=== PATIENT | male | born 1930 | race Caucasian/White ===

== ENCOUNTER 2017-10-08 16:00 | Inpatient (IN) | payer OTHER ==
[~2017-10-08] VITALS: Ht 180.3 cm; Wt 90.7 kg
--- NOTE | 2017-10-08 16:27 | ED GI/GU/ABDOMINAL COMPLAINT ---
History of Present Illness General Chief Complaint: Abdominal Pain/Flank Pain Stated Complaint: ?DIVERTICULITIS Source: patient, family Exam Limitations: no limitations Vital Signs & Intake/Output Vital Signs & Intake/Output Vital Signs Date Time Temp Pulse Resp B/P B/P Pulse O2 O2 Flow FiO2 Mean Ox Delivery Rate 10/10 0631 98.2 86 20 150/66 96 Room Air / 2203 98.5 80 20 164/72 98 Room Air 10/09 1429 98.2 82 20 148/64 93 Room Air 10/09 0837 86 150/64 06/05 0718 98.4 86 20 150/64 95 Room Air ED Intake and Output 10/10 0000 10/09 1200 Intake Total 1994 975 Output Total 2850 500 Balance -855 475 Intake, IV 1994 975 Intake, Oral 0 Number 0 Bowel Movements Output, Urine 2850 500 Allergies Coded Allergies: NO KNOWN ALLERGIES (10/08/17) Reconcile Medications Amlodipine Besylate 5 MG TABLET 1 TAB PO DAILY htn (Reported) Enalapril Maleate (Unknown Strength) TABLET (Unknown Dose) htn (Reported) Warfarin Sodium (Coumadin) 5 MG TABLET 1 TAB PO DAILY hx dvt (Reported) Triage Note: PT STATES HE IS HAVING "INTESTINAL PAIN AND I HAVE A TEMP.".. PT STATES HE HAS HX OF DIVERTICULITS PT DID NOT NOTE ANY BLOOD IN STOOL AND STATES HE HAS NOT HAD A BM TODAY. Triage Nurses Notes Reviewed? yes Onset: Abrupt Duration: hour(s):, constant Quality/Severity: moderate, sharpness, severe Location: lower abdomen Radiation: no radiation Activities at Onset: none Prior Abdominal Problems: none No Modifying Factors: none HPI: 87-year-old male comes into the emergency room for further evaluation of lower abdominal pain sudden onset this morning. Pain is sharp cramping nonradiating. Associated fever. History of diverticulitis. He has a history of a right nephrectomy secondary to renal cell carcinoma. Denies any vomiting. Denies any blood in his stool. He has not been able to have a bowel movement today yet. Pain was very intense initially but has decreased but is still present. (Shad Ahuja) Past History Travel History Traveled to [place] past 21 day No Medical History Any Pertinent Medical History? see below for history Cardiovascular: hypertension Gastrointestinal: diverticulitis Renal: GOUT Blood Disorders: DVT Cancer(s): RENAL AND PROSTATE Surgical History Surgical History: right nephrectomy Psychosocial History What is your primary language Frisian Tobacco Use: Quit >30 days ago ETOH Use: occasional use Illicit Drug Use: denies illicit drug use Family History Hx Contributory? No (Shad Ahuja) Review of Systems Review of Systems Constitutional: Reports: no symptoms. EENTM: Reports: no symptoms. Respiratory: Reports: no symptoms. Cardiovascular: Reports: no symptoms. GI: Reports: see HPI. Genitourinary: Reports: no symptoms. Musculoskeletal: Reports: no symptoms. Skin: Reports: no symptoms. Neurological/Psychological: Reports: no symptoms. Hematologic/Endocrine: Reports: no symptoms. Immunologic/Allergic: Reports: no symptoms. All Other Systems: Reviewed and Negative (Shad Ahuja) Physical Exam Physical Exam General Appearance: well developed/nourished, mild distress Head: atraumatic Eyes: Bilateral: normal appearance. Ears, Nose, Throat, Mouth: hearing grossly normal, moist mucous membrane Neck: normal inspection Respiratory: no respiratory distress Gastrointestinal: soft, guarding, tenderness (right lower abdomen) Back: normal inspection Extremities: normal range of motion Neurologic/Psych: awake, alert, oriented x 3 Core Measures ACS in differential dx? No Sepsis Present: No Sepsis Focused Exam Completed? No (Shad Ahuja) Progress Differential Diagnosis: appendicitis, bowel obstruction, diverticulitis, ischemic bowel, peptic ulcer, perforated viscous, SBO, ureterolithiasis, UTI/ pyelo Plan of Care: Orders Procedure Date/time Status PROTHROMBIN TIME 10/10 599 Active CBC WITHOUT DIFFERENTIAL 10/10 599 Active BASIC ELECTROLYTES PLUS BUN&CR 10/10 599 Active Current Medications Sig/Olga Start time Last Medication Dose Stop Time Status Admin Ceftriaxone Sodium 1,000 MG Q24H 10/09 1945 AC 10/09 (Rocephin) 1929 Metronidazole 500 MG Q8H 10/09 0345 AC 10/10 (Flagyl) 0322 N/A 1 UNIT (No Carrier) Dextrose/Sodium 1,000 ML .Q8H 10/09 1999 AC 10/10 Chloride 0157 (D5-Normal Saline) Morphine Sulfate 2 MG Q2P PRN 10/09 1999 AC (MORPHINE SULFATE) Morphine Sulfate 4 MG Q2P PRN 10/09 1999 AC (MORPHINE SULFATE) Ondansetron HCl 4 MG Q6P PRN 10/09 1999 AC (Zofran) Amlodipine Besylate 5 MG DAILY 10/08 1957 AC 10/09 (Norvasc) 0837 Laboratory Tests 10/09/17 0720: Anion Gap 8, Estimated GFR 48 L, BUN/Creatinine Ratio 15.0, PT 41.9 H, INR 3.79 H, CBC w Diff NO MAN DIFF REQ, RBC 2.93 L, MCV 94.1 H, MCH 31.3 H, MCHC 33.3, RDW 14.6 H, MPV 7.5, Gran % 75.6 H, Lymphocytes % 13.7 L, Monocytes % 8.0, Eosinophils % 2.4, Basophils % 0.3, Absolute Granulocytes 5.3, Absolute Lymphocytes 1.0 L, Absolute Monocytes 0.6, Absolute Eosinophils 0.2, Absolute Basophils 0 Diagnostic Imaging: Viewed by Me: CT Scan. Discussed w/RAD: CT Scan. Radiology Impression: PATIENT: ROMAIN ZAIDI PRESENT AGE: 87 PATIENT ACCOUNT NO: [id number] : 31 LOCATION: [facility] ORDERING PHYSICIAN: Shad SELF SERVICE DATE: 10/08/17 EXAM TYPE: CAT - CT ABD & PELVIS W/O IV CONTRAS EXAMINATION: CT ABDOMEN AND PELVIS WITHOUT CONTRAST CLINICAL INFORMATION: Sudden onset lower abdominal pain. History of diverticulitis. COMPARISON: CT scan abdomen pelvis 01/18/2013 TECHNIQUE: Multidetector volumetric imaging was performed from the superior aspect of the liver through the pubic symphysis. Sagittal and coronal reformatted images were obtained on the technologist's workstation. DLP: 755.81 mGy-cm FINDINGS: LUNG BASES: The visualized lung bases are unremarkable. LIVER, GALLBLADDER, AND BILIARY TREE: There are numerous hepatic cysts. No suspicious liver lesion. No intrahepatic bile duct dilatation. Status post cholecystectomy. There is no bile duct dilatation. PANCREAS: There is atrophy of the pancreas. No acute change. No inflammation or mass. No pancreatic duct dilatation. SPLEEN: Unremarkable. ADRENAL GLANDS: Unremarkable. KIDNEYS AND URETERS: The right kidney is surgically absent. There are surgical clips in the right renal fossa. No mass present. There are numerous cysts in the left kidney. These involve both the cortex and parapelvic region. These range in size from the largest cyst measuring 9.3 cm 2 smaller cysts measuring less than a centimeter. There is no hydronephrosis. There is no calculi. There are vascular calcifications at the delonte. BLADDER: There is a right-sided bladder diverticulum measuring 4.7 x 3 x 3 cm. GASTROINTESTINAL TRACT: There is extraluminal gas in the right lower quadrant in a focal area with mesenteric edema. This edema was around both large and small bowel loops. There are innumerable diverticula of the sigmoid colon which lies close to this area but the mesenteric edema appears more related to an adjacent small bowel loop. The bowel perforation edema is related to a diverticulitis and would suspect is involving the large bowel but cannot exclude small bowel involvement. The appendix is normal. ABDOMINAL WALL: No significant hernia is appreciated. LYMPH NODES: Normal. VASCULAR: Unremarkable. PELVIC VISCERA: Unremarkable. OSSEOUS STRUCTURES: Unremarkable. IMPRESSION: Extraluminal gas and mesenteric edema in the right lower quadrant from diverticulitis. This is likely from a loop of large bowel bowel in the right lower quadrant. This critical result was discussed with Dr. Massey on 2017. 5:30 PM and it was ascertained that the content and urgency of the report was understood at the time of direct communication. DICTATED BY: Derrick Mariscal MD DATE/TIME DICTATED:10/08/171710 LARD RENDERER:JACKIE DATE/TIME TRANSCRIBED:10/08/171710 CONFIDENTIAL, DO NOT COPY WITHOUT APPROPRIATE AUTHORIZATION. <Electronically signed in Other Vendor System> SIGNED BY: Derrick Mariscal MD 10/08/17 5663 Initial ED EKG: normal sinus rhythm, rate (117) (Shad Ahuja) Departure Departure Disposition: STILL A PATIENT Condition: Stable Clinical Impression Primary Impression: Perforated diverticulum Referrals: Michele KRISHNAN,Shawn Gonsalez (PCP/Family) Departure Forms: Customer Survey General Discharge Information (Shad Ahuja) PA/HOPPER FILLER Co-Sign Statement Statement: ED Attending supervision documentation- [x] I saw and evaluated the patient. I have also reviewed all the pertinent lab results and diagnostic results. I agree with the findings and the plan of care as documented in the PA's/HOPPER FILLER's documentation. [] I have reviewed the ED Record and agree with the PA's/HOPPER FILLER's documentation. [] Additions or exceptions (if any) to the PAs/HOPPER FILLER's note and plan are summarized below: [] (Eddy Anderson DO) Admission Note Spoke With: Chai Romero DO Documentation of Exam: Documentation of any treatments & extenuating circumstances including Concerns Regarding Discharge (functional status, medication knowledge or non-compliance, living conditions, etc.) that warrant an admission rather than observation: [ Admitted to the surgical service, nothing by mouth, IV antibiotics, may require surgical intervention.] (Francisco KRISHNAN,Dov Matos) Critical Care Note Critical Care Note Critical Care Time: 30-74 min (Shad Ahuja) Absolute Monocytes 0.6, Absolute Eosinophils 0, Absolute Basophils 0 (Eddy Anderson DO) Departure Departure Disposition: STILL A PATIENT Condition: Stable Clinical Impression Primary Impression: Perforated diverticulum Referrals: Shawn Bautista MD (PCP/Family) Departure Forms: Customer Survey General Discharge Information (Shad Ahuja) PA/HOPPER FILLER Co-Sign Statement Statement: ED Attending supervision documentation- [x] I saw and evaluated the patient. I have also reviewed all the pertinent lab results and diagnostic results. I agree with the findings and the plan of care as documented in the PA's/HOPPER FILLER's documentation. [] I have reviewed the ED Record and agree with the PA's/HOPPER FILLER's documentation. [] Additions or exceptions (if any) to the PAs/HOPPER FILLER's note and plan are summarized below: [] (Eddy Anderson DO) Admission Note Spoke With: Chai Romero DO Documentation of Exam: Documentation of any treatments & extenuating circumstances including Concerns Regarding Discharge (functional status, medication knowledge or non-compliance, living conditions, etc.) that warrant an admission rather than observation: [ Admitted to the surgical service, nothing by mouth, IV antibiotics, may require surgical intervention.] (Dov Singh MD) Critical Care Note Critical Care Note Critical Care Time: 30-74 min (Shad Ahuja)
[2017-10-08 16:56] LABS: ABSOLUTE BASOPHIL COUNT 0 /CUMM (0.0-0.2); ABSOLUTE EOSINOPHIL COUNT 0 /CUMM (0.0-0.7); ABSOLUTE LYMPH COUNT 0.7 /CUMM (1.2-3.4); ABSOLUTE MONOCYTE COUNT 0.6 /CUMM (0.10-0.60); BASOPHIL % 0.2 % (0.0-2.0); EOSINOPHIL % 0.5 % (0-5); HEMATOCRIT 33.3 % (42-52); MEAN CORPUSCULAR HGB 31.6 PG (27.0-31.0); MEAN CORPUSCULAR HGB CONC 33.3 G/DL (33.0-37.0); MEAN CORPUSCULAR VOLUME 94.9 FL (80.0-94.0); MEAN PLATELET VOLUME 7.5 FL (7.4-10.4); PLATELET COUNT 232 /CUMM (130-400); RBC DISTRIBUTION WIDTH 14.7 % (11.5-14.5); WHITE BLOOD CELL COUNT 9.4 /CUMM (4.8-10.8)
[2017-10-08 17:15] LABS: GRANULOCYTE % 84.8 % (42.2-75.2)
--- NOTE | 2017-10-08 17:39 | CT SCAN REPORT ---
EXAMINATION: CT ABDOMEN AND PELVIS WITHOUT CONTRAST CLINICAL INFORMATION: Sudden onset lower abdominal pain. History of diverticulitis. COMPARISON: CT scan abdomen pelvis 01/18/2013 TECHNIQUE: Multidetector volumetric imaging was performed from the superior aspect of the liver through the pubic symphysis. Sagittal and coronal reformatted images were obtained on the technologist's workstation. DLP: 755.81 mGy-cm FINDINGS: LUNG BASES: The visualized lung bases are unremarkable. LIVER, GALLBLADDER, AND BILIARY TREE: There are numerous hepatic cysts. No suspicious liver lesion. No intrahepatic bile duct dilatation. Status post cholecystectomy. There is no bile duct dilatation. PANCREAS: There is atrophy of the pancreas. No acute change. No inflammation or mass. No pancreatic duct dilatation. SPLEEN: Unremarkable. ADRENAL GLANDS: Unremarkable. KIDNEYS AND URETERS: The right kidney is surgically absent. There are surgical clips in the right renal fossa. No mass present. There are numerous cysts in the left kidney. These involve both the cortex and parapelvic region. These range in size from the largest cyst measuring 9.3 cm 2 smaller cysts measuring less than a centimeter. There is no hydronephrosis. There is no calculi. There are vascular calcifications at the delonte. BLADDER: There is a right-sided bladder diverticulum measuring 4.7 x 3 x 3 cm. GASTROINTESTINAL TRACT: There is extraluminal gas in the right lower quadrant in a focal area with mesenteric edema. This edema was around both large and small bowel loops. There are innumerable diverticula of the sigmoid colon which lies close to this area but the mesenteric edema appears more related to an adjacent small bowel loop. The bowel perforation edema is related to a diverticulitis and would suspect is involving the large bowel but cannot exclude small bowel involvement. The appendix is normal. ABDOMINAL WALL: No significant hernia is appreciated. LYMPH NODES: Normal. VASCULAR: Unremarkable. PELVIC VISCERA: Unremarkable. OSSEOUS STRUCTURES: Unremarkable. IMPRESSION: Extraluminal gas and mesenteric edema in the right lower quadrant from diverticulitis. This is likely from a loop of large bowel bowel in the right lower quadrant. This critical result was discussed with Dr. Massey on 10/08/2017. 5:30 PM and it was ascertained that the content and urgency of the report was understood at the time of direct communication.
--- NOTE | 2017-10-08 19:26 | PN- General Surgery ---
Surgical Brief Attending Note Brief Attending Note: Patient seen and examined, full consult to follow. Abdominal pain started today, h/o diverticulitis treated with PO Abx. Febrile earlier. C-scope 6 years ago and normal as per patient. Currently comfortable with minimal pain. Abd-soft, mild tenderness right lower abdomen, no R/G. Labs ok. CT scan ?diverticulitis perf with localized air/fluid (?small bowel vs large bowel?). NPO/IVF, IV Abx, serial abdominal exams. D/W patient and ED staff.
[2017-10-08 19:46] LABS: PT 34.1 SEC (9.4-12.5); PTT 39 SEC (25-37)
[2017-10-08] MEDS ORDERED: COUMADIN5 M2 PO (19:50)
[2017-10-08] MEDS ORDERED: AMLODIPINE BESYL5 M1 PO (19:50)
[2017-10-08] MEDS ORDERED: ENALAPRIL MALEAT5 M1 PO (19:51)
--- NOTE | 2017-10-08 19:52 | History & Physical Pre-Op ---
Miesha Dotson [birth year]1951: General Information and HPI History of Present Illness: 87yoM presents to ED with acute onset lower abdominal pain this am. Ate regular breakfast, and was feeling in normal state of health until sharp crampy pain across lower abd began ahortly after eating. Pain accompanied with fever to 102 at home. Found with Tmax 101.7 in ED, and was very TTP in lower abd per ED PA. At time of this interview, pt feeling much better. Pain in RLQ, though much improved. No n/v, no cp/sob, no subjective fever. Does have known history of diverticulitis x3 episodes, all treated with outpt abx. Last cscope 6 yrs ago, "normal". Surg Hx: R nephrectomy (RCC), prostatectomy (ca). 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 Allergies/Medications Allergies: Coded Allergies: NO KNOWN ALLERGIES (10/08/17) Home Med list Amlodipine Besylate 5 MG TABLET 1 TAB PO DAILY htn (Reported) Enalapril Maleate (Unknown Strength) TABLET (Unknown Dose) htn (Reported) Warfarin Sodium (Coumadin) 5 MG TABLET 1 TAB PO DAILY hx dvt (Reported) Past History Medical History Cardiovascular: hypertension, hyperlipidemia Gastrointestinal: diverticulitis Renal: GOUT Blood Disorders: NONE (2003 and 2007, RLE), DVT Cancer(s): RENAL AND PROSTATE Surgical History Pertinent Surgical History: prostatectomy, right nephrectomy Past Family/Social History Psychosocial History Where Do You Live? Home Who Do You Live With? spouse Smoking Status: Former Smoker (quit 40yr ago) ETOH Use: occasional use Illicit Drug Use: denies illicit drug use Exam & Diagnostic Data Last 24 Hrs of Vital Signs/I&O Vital Signs Date Time Temp Pulse Resp B/P B/P Pulse O2 O2 Flow FiO2 Mean Ox Delivery Rate 10/08 1946 99.7 90 20 134/62 96 Room Air 10/08 1728 101.2 10/08 1701 101.7 10/08 1611 101.7 132 18 166/75 95 Room Air Physical Exam: gen- nad card- s1s2 rrr pulm- ctab abd- mildly ttp rlq, no r/g, +bs, soft ext- calves soft nt Last 24 Hrs of Labs/Ari[place]: Laboratory Tests 10/08/17 1920: Lactic Acid Cancelled 10/08/17 1856: APTT Cancelled 10/08/17 1738: Urine Color YEL, Urine Clarity CLEAR, Urine pH 6.0, Ur Specific [place] 1.020, Urine Protein 30 H, Urine Ketones NEG, Urine Nitrite NEG, Urine Bilirubin NEG, Urine Urobilinogen 0.2, Ur Leukocyte Esterase NEG, Ur Microscopic SEDIMENT EXAMINED, Urine RBC 1-3, Urine Bacteria RARE H, Urine Hemoglobin MOD H, Urine Glucose NEG 10/08/17 1638: Anion Gap 10, Estimated GFR 44 L, BUN/Creatinine Ratio 18.0, Glucose 170 H, Lactic Acid 1.3, Calcium 9.0, Total Bilirubin 0.3, AST 16 L, ALT 24, Alkaline Phosphatase 51, Total Protein 5.8 L, Albumin 3.4 L, Globulin 2.4, Albumin/ Globulin Ratio 1.4, Lipase 96, PT 34.1 H, INR 3.09 H, APTT 39 H, CBC w Diff NO MAN DIFF REQ, RBC 3.50 L, MCV 94.9 H, MCH 31.6 H, MCHC 33.3, RDW 14.7 H, MPV 7.5, Gran % 84.8 H, Lymphocytes % 7.9 L, Monocytes % 6.6, Eosinophils % 0.5, Basophils % 0.2, Absolute Granulocytes 8.0 H, Absolute Lymphocytes 0.7 L, Absolute Monocytes 0.6, Absolute Eosinophils 0, Absolute Basophils 0 Diagnostic Data Other Results SERVICE DATE: 10/08/17-1626 EXAM TYPE: CAT - CT ABD & PELVIS W/O IV CONTRAS EXAMINATION: CT ABDOMEN AND PELVIS WITHOUT CONTRAST CLINICAL INFORMATION: Sudden onset lower abdominal pain. History of diverticulitis. COMPARISON: CT scan abdomen pelvis 01/18/2013 TECHNIQUE: Multidetector volumetric imaging was performed from the superior aspect of the liver through the pubic symphysis. Sagittal and coronal reformatted images were obtained on the technologist's workstation. DLP: 755.81 mGy-cm FINDINGS: LUNG BASES: The visualized lung bases are unremarkable. LIVER, GALLBLADDER, AND BILIARY TREE: There are numerous hepatic cysts. No suspicious liver lesion. No intrahepatic bile duct dilatation. Status post cholecystectomy. There is no bile duct dilatation. PANCREAS: There is atrophy of the pancreas. No acute change. No inflammation or mass. No pancreatic duct dilatation. SPLEEN: Unremarkable. ADRENAL GLANDS: Unremarkable. KIDNEYS AND URETERS: The right kidney is surgically absent. There are surgical clips in the right renal fossa. No mass present. There are numerous cysts in the left kidney. These involve both the cortex and parapelvic region. These range in size from the largest cyst measuring 9.3 cm 2 smaller cysts measuring less than a centimeter. There is no hydronephrosis. There is no calculi. There are vascular calcifications at the delonte. BLADDER: There is a right-sided bladder diverticulum measuring 4.7 x 3 x 3 cm. GASTROINTESTINAL TRACT: There is extraluminal gas in the right lower quadrant in a focal area with mesenteric edema. This edema was around both large and small bowel loops. There are innumerable diverticula of the sigmoid colon which lies close to this area but the mesenteric edema appears more related to an adjacent small bowel loop. The bowel perforation edema is related to a diverticulitis and would suspect is involving the large bowel but cannot exclude small bowel involvement. The appendix is normal. ABDOMINAL WALL: No significant hernia is appreciated. LYMPH NODES: Normal. VASCULAR: Unremarkable. PELVIC VISCERA: Unremarkable. OSSEOUS STRUCTURES: Unremarkable. IMPRESSION: Extraluminal gas and mesenteric edema in the right lower quadrant from diverticulitis. This is likely from a loop of large bowel bowel in the right lower quadrant. Assessment/Plan Assessment/Plan: A- 87yoM with abdominal pain related to inflammatory process in RLQ, likely contained diverticular perforation, otherwise stable, on Coumadin for hx DVT. P- Admit to inpt: perforated diverticulitis hold coumadin NPO IVF quinten/flag home antihtn meds prn pain meds, antiemetics serial abd exams trend labs alps Pt seen by myself and Dr. Romero. Refer to his brief attending note As Ranked By This Provider Problem List: 1. Diverticulitis 2. Abdominal pain Chai Romero DO 10/10/17 1012: Attending MD Review Statement Attending Statement Attending MD Statement: examined this patient, discuss w/resident/PA/FOOD PREPARER, agreed w/resident/PA/FOOD PREPARER, discussed with family, reviewed EMR data (avail), discussed w/ nursing, reviewed images
--- NOTE | 2017-10-08 19:52 | Admission Core Measures ---
Acute Coronary Syndrome (CM) ACS Core Measures Acute Coronary Syndrome Diagnosis No Congestive Heart Failure (NEW) CHF Core Measures Congestive Heart Failure Diagnosis No Cerebrovascular Accident (NEW) CVA Core Measures CVA/TIA Diagnosis No Venous Thromboembolism VTE Core Andres (View Protocol) VTE Risk Factors VTE (Previous) No Mechanical VTE Prophylaxis d/t N/A MechProphylax Ordered No VTE Pharm Prophylaxis d/t Surgical Contraindication (holding for ?or) Problem List As ranked by this Provider includes Assessment & Plan 1. Abdominal pain 2. Diverticulitis HOME MEDS Home Med List Amlodipine Besylate 5 MG TABLET 1 TAB PO DAILY htn (Reported) Warfarin Sodium (Coumadin) 5 MG TABLET 1 TAB PO DAILY hx dvt (Reported)
[2017-10-08 22:39] VITALS: BP 120/70
[2017-10-09 07:18] VITALS: BP 150/64
[2017-10-09 08:09] LABS: ABSOLUTE BASOPHIL COUNT 0 /CUMM (0.0-0.2); ABSOLUTE EOSINOPHIL COUNT 0.2 /CUMM (0.0-0.7); ABSOLUTE GRANULOCYTE CT 5.3 /CUMM (1.4-6.5); ABSOLUTE MONOCYTE COUNT 0.6 /CUMM (0.10-0.60); BASOPHIL % 0.3 % (0.0-2.0); EOSINOPHIL % 2.4 % (0-5); GRANULOCYTE % 75.6 % (42.2-75.2); MEAN CORPUSCULAR HGB 31.3 PG (27.0-31.0); MEAN CORPUSCULAR HGB CONC 33.3 G/DL (33.0-37.0); MEAN CORPUSCULAR VOLUME 94.1 FL (80.0-94.0); MEAN PLATELET VOLUME 7.5 FL (7.4-10.4); PLATELET COUNT 189 /CUMM (130-400); RBC DISTRIBUTION WIDTH 14.6 % (11.5-14.5); RED BLOOD CELL CT 2.93 /CUMM (4.70-6.10)
[2017-10-09 08:19] LABS: PT 41.9 SEC (9.4-12.5)
--- NOTE | 2017-10-09 08:21 | PN- General Surgery ---
See Addendum Subjective Subjective: Patient feeling a lot better today than yesterday. Minimal pain in the right side of the abdomen. No fever overnight, no flulike illness, no nausea no vomiting. Minimal flatus Objective Vital Signs and I&Os Vital Signs Date Time Temp Pulse Resp B/P B/P Pulse O2 O2 Flow FiO2 Mean Ox Delivery Rate 10/09 0618 98.4 86 20 150/64 95 Room Air 10/08 2239 98.4 91 20 120/70 96 Room Air 10/08 1947 99.7 90 20 134/62 96 Room Air 10/08 1728 101.2 10/08 1701 101.7 10/08 1611 101.7 132 18 166/75 95 Room Air Intake & Output 10/09 1600 10/09 0800 10/09 0000 10/08 1600 10/08 0800 10/08 0000 Intake Total 975 0 Output Total 500 Balance 475 0 Intake, IV 975 Intake, Oral 0 Output, Urine 500 Patient 200 lb Weight Weight Reported by Patient Measurement Method Physical Exam: Well-developed well-nourished no apparent distress. HEENT: Atraumatic, extraocular motion intact Neck: Supple, no lymphadenopathy Respiratory: No respiratory distress Abdomen: Mild distention, mild tenderness in the right lower quadrant right mid abdominal region. Hypoactive bowel sounds. No rebound no guarding no peritoneal signs, no tympany Extremities: No edema, no calf pain Neuro: Alert and oriented x3 Psych: Mood affect normal, normal memory normal judgment. Skin: Warm and dry, no rash on exposed skin Results Last 48 Hours of Labs: Laboratory Tests 10/09 10/08 10/08 0720 1920 1856 Chemistry Sodium Pending Potassium Pending Chloride Pending Carbon Dioxide Pending Anion Gap Pending BUN Pending Creatinine Pending BUN/Creatinine Ratio Pending Lactic Acid Cancelled Coagulation PT Pending INR Pending APTT Cancelled Hematology CBC w Diff Pending WBC Pending RBC Pending Hgb Pending Hct Pending MCV Pending MCH Pending MCHC Pending RDW Pending Plt Count Pending MPV Pending 10/08 10/08 1738 1638 Chemistry Sodium (137 - 145 mmol/L) 139 Potassium (3.5 - 5.1 mmol/L) 4.4 Chloride (98 - 107 mmol/L) 107 Carbon Dioxide (22 - 30 mmol/L) 22 Anion Gap (5 - 16) 10 BUN (9 - 20 mg/dL) 27 H Creatinine (0.7 - 1.2 mg/dL) 1.5 H Estimated GFR (>60 ml/min) 44 L BUN/Creatinine Ratio (7 - 25 %) 18.0 Glucose (65 - 99 mg/dL) 170 H Lactic Acid (0.7 - 2.1 mmol/L) 1.3 Calcium (8.4 - 10.2 mg/dL) 9.0 Total Bilirubin (0.2 - 1.3 mg/dL) 0.3 AST (17 - 59 U/L) 16 L ALT (21 - 72 U/L) 24 Alkaline Phosphatase (< 127 U/L) 51 Total Protein (6.3 - 8.2 g/dL) 5.8 L Albumin (3.5 - 5.0 g/dL) 3.4 L Globulin (1.9 - 4.2 gm/dL) 2.4 Albumin/Globulin Ratio (1.1 - 2.2 %) 1.4 Lipase (23 - 300 U/L) 96 Coagulation PT (9.4 - 12.5 SEC) 34.1 H INR (0.90 - 1.17) 3.09 H APTT (25 - 37 SEC) 39 H Hematology CBC w Diff NO MAN DIFF REQ WBC (4.8 - 10.8 /CUMM) 9.4 RBC (4.70 - 6.10 /CUMM) 3.50 L Hgb (14.0 - 18.0 G/DL) 11.1 L Hct (42 - 52 %) 33.3 L MCV (80.0 - 94.0 FL) 94.9 H MCH (27.0 - 31.0 PG) 31.6 H MCHC (33.0 - 37.0 G/DL) 33.3 RDW (11.5 - 14.5 %) 14.7 H Plt Count (130 - 400 /CUMM) 232 MPV (7.4 - 10.4 FL) 7.5 Gran % (42.2 - 75.2 %) 84.8 H Lymphocytes % (20.5 - 51.1 %) 7.9 L Monocytes % (1.7 - 9.3 %) 6.6 Eosinophils % (0 - 5 %) 0.5 Basophils % (0.0 - 2.0 %) 0.2 Absolute Granulocytes (1.4 - 6.5 /CUMM) 8.0 H Absolute Lymphocytes (1.2 - 3.4 /CUMM) 0.7 L Absolute Monocytes (0.10 - 0.60 /CUMM) 0.6 Absolute Eosinophils (0.0 - 0.7 /CUMM) 0 Absolute Basophils (0.0 - 0.2 /CUMM) 0 Urines Urine Color (YEL,AMB,STR) YEL Urine Clarity (CLEAR) CLEAR Urine pH (5.0 - 8.0) 6.0 Ur Specific [place] (1.001 - 1.035) 1.020 Urine Protein (NEG,<30 MG/DL) 30 H Urine Ketones (NEG) NEG Urine Nitrite (NEG) NEG Urine Bilirubin (NEG) NEG Urine Urobilinogen (0.1 - 1.0 EU/dl) 0.2 Ur Leukocyte Esterase (NEG) NEG Ur Microscopic SEDIMENT EXAMINED Urine RBC (0 - 5 /HPF) 1-3 Urine Bacteria (NEG/NONE) RARE H Urine Hemoglobin (NEG) MOD H Urine Glucose (N MG/DL) NEG Assessment/Plan Assessment/Plan 87yoM admitted with contained intestinal perforation, likely diverticular Continue current care, pt improving hold coumadin NPO IVF quinten/flag home antihtn meds prn pain meds, antiemetics serial abd exams follow labs this am alps Out of bed, ambulate Heparin subcu when INR under 2 for DVT prophylaxis as history of same 2 right lower extremity Core Measures Venous Thromboembolism VTE Risk Factors VTE (Previous) No Mechanical VTE Prophylaxis d/t N/A MechProphylax Ordered No VTE Pharm Prophylaxis d/t Surgical Contraindication (holding for ?or)
[2017-10-09 08:22] LABS: HEMATOCRIT 27.6 % (42-52)
[2017-10-09 14:29] VITALS: BP 148/64
[2017-10-09 22:03] VITALS: BP 164/72
[2017-10-10 06:31] VITALS: BP 150/66
[2017-10-10 08:00] LABS: ABSOLUTE BASOPHIL COUNT 0 /CUMM (0.0-0.2); ABSOLUTE EOSINOPHIL COUNT 0.3 /CUMM (0.0-0.7); ABSOLUTE GRANULOCYTE CT 3.3 /CUMM (1.4-6.5); ABSOLUTE LYMPH COUNT 0.9 /CUMM (1.2-3.4); ABSOLUTE MONOCYTE COUNT 0.4 /CUMM (0.10-0.60); BASOPHIL % 0.6 % (0.0-2.0); GRANULOCYTE % 66.9 % (42.2-75.2); HEMATOCRIT 27.5 % (42-52); MEAN CORPUSCULAR HGB 31.9 PG (27.0-31.0); MEAN CORPUSCULAR HGB CONC 33.5 G/DL (33.0-37.0); MEAN CORPUSCULAR VOLUME 95.2 FL (80.0-94.0); MEAN PLATELET VOLUME 7.8 FL (7.4-10.4); PLATELET COUNT 199 /CUMM (130-400); RBC DISTRIBUTION WIDTH 14.4 % (11.5-14.5); RED BLOOD CELL CT 2.89 /CUMM (4.70-6.10); WHITE BLOOD CELL COUNT 4.9 /CUMM (4.8-10.8)
[2017-10-10 08:19] LABS: PT 30.4 SEC (9.4-12.5)
--- NOTE | 2017-10-10 08:19 | PN- General Surgery ---
See Addendum Subjective Subjective: HD#2 DIVETICULAR PERF W/ABSCESS FEELING MUCH BETTER TODAY NO MAJOR ISSUE OVERNIGHT DENIES CP, SOB, NO N+V NO FEVER/CHILLS/RIGORS OVERNIGHT +FLATUS Objective Vital Signs and I&Os Vital Signs Date Time Temp Pulse Resp B/P B/P Pulse O2 O2 Flow FiO2 Mean Ox Delivery Rate 10/10 0631 98.2 86 20 150/66 96 Room Air 10/09 2203 98.5 80 20 164/72 98 Room Air 10/09 1429 98.2 82 20 148/64 93 Room Air 10/09 0837 86 150/64 Intake & Output 10/10 1600 10/10 0800 10/10 0000 10/09 1600 10/09 0800 10/09 0000 Intake Total 7846 113 0930 975 0 Output Total 1100 1250 1600 500 Balance -100 -355 -500 475 0 Intake, IV 1316 635 1398 975 Intake, Oral 0 0 0 Number 0 0 Bowel Movements Output, Urine 1100 1250 1600 500 Patient 200 lb Weight Weight Reported by Patient Measurement Method Physical Exam: CV: RRR LUNGS: CLEAR ABD: LESS LOWER ABD PAIN TO DEEP PALP NO REBOUND/GUARDING +BS EXT: WARM, DISTAL CMS INTACT Assessment/Plan Assessment/Plan CLINICALLY IMPROVING PLAN CONT IV ABX ADVANCE TO CLEARS OOB/ AMBULATE WILL D/W ATTENDING Core Measures Venous Thromboembolism VTE Risk Factors VTE (Previous) No Mechanical VTE Prophylaxis d/t N/A MechProphylax Ordered No VTE Pharm Prophylaxis d/t Surgical Contraindication (holding for ?or)
[2017-10-10 14:52] VITALS: BP 134/68
[2017-10-10 21:41] VITALS: BP 132/58
[2017-10-11 06:41] VITALS: BP 150/80
--- NOTE | 2017-10-11 07:28 | PN- Student ---
Subjective Subjective: Patient's abdominal pain has improved and the patient denies abdominal pain today. patient reports bowel movement last night. Patient reports passing gas. Patient reports bilateral heel pain that developed while walking around the unit yesterday. The heel pain has improved this AM, but is still present when the heel is pressed on. Patient denies nausea, vommiting, shortness of breath, chest pain, racing heart beat, and calf pain. Objective Objective: General: No acute distress. Patient is alert and oriented to time and place. Lungs: Lungs are clear Heart: S1 and S2 heard Abdomen: Bowel sounds are present. Belly is soft and pain free on palpation. Extemities: Calves are soft and pain free bilaterally. Skin on feet and heels was intact and free of sores or ulceration. Results Results: Vitals Temp: 98.2 oral Pulse Rate: 77 Respiratory Rate: 18 Blood Pressure: 134/68 Pulse Ox: 99 on room air Assessment/Plan Assessment: Patient is an 87 year old male s/p perferated diverticulum with abcess Patient is improving and doing well Plan: Continue with IV antibiotics Continue ambulation as tolerated Advance diet and hold IV fluids if tolerated Continue with pain control regimine Continue Home meds Check INR and consider resuming coumadin
[2017-10-11 08:08] LABS: ABSOLUTE BASOPHIL COUNT 0 /CUMM (0.0-0.2); ABSOLUTE EOSINOPHIL COUNT 0.3 /CUMM (0.0-0.7); ABSOLUTE LYMPH COUNT 0.9 /CUMM (1.2-3.4); ABSOLUTE MONOCYTE COUNT 0.3 /CUMM (0.10-0.60); BASOPHIL % 0.4 % (0.0-2.0); EOSINOPHIL % 7.4 % (0-5); HEMATOCRIT 28.5 % (42-52); MEAN CORPUSCULAR HGB 31.5 PG (27.0-31.0); MEAN CORPUSCULAR HGB CONC 33.2 G/DL (33.0-37.0); MEAN PLATELET VOLUME 7.6 FL (7.4-10.4); PLATELET COUNT 208 /CUMM (130-400); RBC DISTRIBUTION WIDTH 14.4 % (11.5-14.5); WHITE BLOOD CELL COUNT 4.6 /CUMM (4.8-10.8)
--- NOTE | 2017-10-11 09:06 | PN- General Surgery ---
Kevin Gonzalez 10/11/17 0906: Subjective Subjective: Patient reports abdominal distention and pain in his suprapubic region has resolved. Tolerating clears without nausea or vomiting. Reports passing flatus and moved his bowels last night. Reports pain in his heels from walking yesterday. Offers no other complaints Objective Vital Signs and I&Os Vital Signs Date Time Temp Pulse Resp B/P B/P Pulse O2 O2 Flow FiO2 Mean Ox Delivery Rate 10/11 0918 84 138/68 10/11 0641 99.1 82 20 150/80 97 Room Air 10/10 2141 98.2 75 18 132/58 98 Room Air 10/10 1452 98.2 77 18 134/68 99 Room Air Intake & Output 10/11 1600 10/11 0800 10/11 0000 10/10 1600 10/10 0800 10/10 0000 Intake Total 2995 753 3651 1000 895 Output Total 800 558 402 9766 1250 Balance 483 255 9159 -100 -355 Intake, IV 2210 990 6166 1000 895 Intake, Oral 705 355 4569 0 Number 0 0 Bowel Movements Output, Urine 800 209 948 9994 1250 Physical Exam: Gen - nad Cardiac - S1S2 noted Lungs - CTAB Abd - soft, protuberant, + bs, dull to percussion, nontender throughout Ext - no edema or calf tenderness Current Medications: Current Medications Sig/Olga Start time Last Medication Dose Route Stop Time Status Admin Amlodipine Besylate 5 MG DAILY 10/08 1957 10/11 PO 0918 Ceftriaxone Sodium 1,000 MG Q24H 10/09 194 AC 10/10 IV 2027 Dextrose/Sodium 1,000 ML .Q20H 10/09 1999 10/11 Chloride IV 0011 Metronidazole 500 MG Q8H 10/09 0345 AC 10/11 N/A 1 UNIT IV 1212 Morphine Sulfate 2 MG Q2P PRN 10/09 1999 AC IV Morphine Sulfate 4 MG Q2P PRN 10/09 1999 AC IV Ondansetron HCl 4 MG Q6P PRN 10/09 1999 AC IV Results Last 48 Hours of Labs: Laboratory Tests 10/11 10/10 0658 0700 Chemistry Sodium (137 - 145 mmol/L) 141 140 Potassium (3.5 - 5.1 mmol/L) 4.0 4.2 Chloride (98 - 107 mmol/L) 112 H 113 H Carbon Dioxide (22 - 30 mmol/L) 21 L 23 Anion Gap (5 - 16) 8 5 BUN (9 - 20 mg/dL) 14 17 Creatinine (0.7 - 1.2 mg/dL) 1.2 1.3 H Estimated GFR (>60 ml/min) 57 L 52 L BUN/Creatinine Ratio (7 - 25 %) 11.7 13.1 Coagulation PT (9.4 - 12.5 SEC) 30.4 H INR (0.90 - 1.17) 2.76 H Hematology CBC w Diff NO MAN DIFF REQ NO MAN DIFF REQ WBC (4.8 - 10.8 /CUMM) 4.6 L 4.9 RBC (4.70 - 6.10 /CUMM) 3.00 L 2.89 L Hgb (14.0 - 18.0 G/DL) 9.5 L 9.2 L Hct (42 - 52 %) 28.5 L 27.5 L MCV (80.0 - 94.0 FL) 95.0 H 95.2 H MCH (27.0 - 31.0 PG) 31.5 H 31.9 H MCHC (33.0 - 37.0 G/DL) 33.2 33.5 RDW (11.5 - 14.5 %) 14.4 14.4 Plt Count (130 - 400 /CUMM) 208 199 MPV (7.4 - 10.4 FL) 7.6 7.8 Gran % (42.2 - 75.2 %) 66.0 66.9 Lymphocytes % (20.5 - 51.1 %) 18.9 L 17.7 L Monocytes % (1.7 - 9.3 %) 7.3 7.8 Eosinophils % (0 - 5 %) 7.4 H 7.0 H Basophils % (0.0 - 2.0 %) 0.4 0.6 Absolute Granulocytes (1.4 - 6.5 /CUMM) 3.0 3.3 Absolute Lymphocytes (1.2 - 3.4 /CUMM) 0.9 L 0.9 L Absolute Monocytes (0.10 - 0.60 /CUMM) 0.3 0.4 Absolute Eosinophils (0.0 - 0.7 /CUMM) 0.3 0.3 Absolute Basophils (0.0 - 0.2 /CUMM) 0 0 Assessment/Plan Assessment/Plan 87 M a/w perforated diverticulitits, resolving with conservative management Cont IV abx, transition to po upon d/c Advance to low fiber diet, d/c IVF Cont pain regimen Encourage ambulation Anticipate d/c tomorrow Resume coumadin, no plans for surgical intervention Will d/w Dr. Romero Core Measures Venous Thromboembolism VTE Risk Factors VTE (Previous) No Mechanical VTE Prophylaxis d/t N/A MechProphylax Ordered No VTE Pharm Prophylaxis d/t Surgical Contraindication (holding for ?or) Chai Romero DO 10/11/17 1738: Attending MD Review Statement Attending Statement Attending MD Statement: examined this patient, discuss w/resident/PA/AIRLINE RESERVATION AGENT, agreed w/resident/PA/AIRLINE RESERVATION AGENT, reviewed EMR data (avail), reviewed images Attending Assessment/Plan: Patient seen and examined, agree with above. Doing well, no complaints. AVSS UO ok +BM. Abd-soft. Labs ok. Cont LRD, IV Abx, plan for D/C in AM.
[2017-10-11 14:27] VITALS: BP 130/58
--- NOTE | 2017-10-11 17:04 | Patient Discharge Instructions ---
Discharge Instructions General Discharge Information You were seen/treated for: Perforated diverticulitis You had these procedures: None Watch for these problems: Increased pain, fever, nausea, vomiting, change in bowel habits Diet Continue normal diet: No Recommended Diet: Low Residue Activity Full Activity/No Limits: Yes Acute Coronary Syndrome Inclusion Criteria At DC or during hospital stay patient has or had the following: ACS DIAGNOSIS No Discharge Core Measures Meds if any: Prescribed or Continued at Discharge Meds if any: NOT Prescribed or Continued at Discharge Congestive Heart Failure Inclusion Criteria At DC or during hospital stay patient has or had the following: CHF DIAGNOSIS No Discharge Core Measures Meds if any: Prescribed or Continued at Discharge Meds if any: NOT Prescribed or Continued at Discharge Cerebrovascular accident Inclusion Criteria At DC or during hospital stay patient has or had the following: CVA/TIA Diagnosis No Discharge Core Measures Meds if any: Prescribed or Continued at Discharge Meds if any: NOT Prescribed or Continued at Discharge Venous thromboembolism Inclusion Criteria VTE Diagnosis No VTE Type NONE VTE Confirmed by (Test) NONE Discharge Core Measures - Per Current guidelines, there needs to be overlap - treatment for the first 5 days of Warfarin therapy. - If discharged on Warfarin prior to 5 days of - overlap therapy, the patient will need to be - assessed for post discharge needs including - *Post discharge parental anticoagulation - *Warfarin and/or parental anticoagulation education - *Follow up date to check INR post discharge At least 5 days overlap therapy as Inpatient No Meds if any: Prescribed or Continued at Discharge Note: Overlap Therapy is Warfarin and Anticoagulant Meds if any: NOT Prescribed or Continued at Discharge
[2017-10-11 22:21] VITALS: BP 130/60
[2017-10-12 06:40] VITALS: BP 140/50
[2017-10-12 07:31] LABS: ABSOLUTE BASOPHIL COUNT 0 /CUMM (0.0-0.2); ABSOLUTE EOSINOPHIL COUNT 0.3 /CUMM (0.0-0.7); ABSOLUTE LYMPH COUNT 0.8 /CUMM (1.2-3.4); ABSOLUTE MONOCYTE COUNT 0.3 /CUMM (0.10-0.60); BASOPHIL % 0.8 % (0.0-2.0); EOSINOPHIL % 7.8 % (0-5); GRANULOCYTE % 58.1 % (42.2-75.2); HEMATOCRIT 28.4 % (42-52); MEAN CORPUSCULAR HGB 31.6 PG (27.0-31.0); MEAN CORPUSCULAR HGB CONC 33.6 G/DL (33.0-37.0); MEAN CORPUSCULAR VOLUME 94.2 FL (80.0-94.0); MEAN PLATELET VOLUME 7.4 FL (7.4-10.4); PLATELET COUNT 230 /CUMM (130-400); RED BLOOD CELL CT 3.02 /CUMM (4.70-6.10); WHITE BLOOD CELL COUNT 3.5 /CUMM (4.8-10.8)
--- NOTE | 2017-10-12 07:57 | PN- Student ---
Jose Finch 10/12/17 0738: Subjective Subjective: PATIENT REPORTS BOWEL MOVEMENT AND PASSING FLATUS YESTERDAY. PATIENT DENIES ABDOMINAL PAIN, CHEST PAIN, SHORTNESS OF BREATH, CALF PAIN, AND NAUSEA AND VOMITING. Objective Objective: VITALS: TEMP: 98.6 ORAL PULSE RATE: 73 RESPIRATORY RATE: 20 BLOOD PRESSURE: 130/58 PULSE OX: 95% ON ROOM AIR GENERAL: NO ACUTE DISTRESS. NO FEVER. PATIENT ORIENTED TO PLACE AND TIME HEART: S1 AND S2 HEARD LUNGS: CLEAR BILATERALLY ABDOMEN: BOWEL SOUNDS PRESENT. BELLY WAS SOFT AND NON TENDER TO PALPATION. BELLY WAS PROTUBERANT. EXTREMITIES: CALVES SOFT BILATERLLY Results Results: Laboratory Tests 10/12/17 0635: PT Pending, INR Pending, CBC w Diff Pending, WBC Pending, RBC Pending, Hgb Pending, Hct Pending, MCV Pending, MCH Pending, MCHC Pending, RDW Pending, Plt Count Pending, MPV Pending 10/11/17 0658: Anion Gap 8, Estimated GFR 57 L, BUN/Creatinine Ratio 11.7, CBC w Diff NO MAN DIFF REQ, RBC 3.00 L, MCV 95.0 H, MCH 31.5 H, MCHC 33.2, RDW 14.4, MPV 7.6, Gran % 66.0, Lymphocytes % 18.9 L, Monocytes % 7.3, Eosinophils % 7.4 H, Basophils % 0.4, Absolute Granulocytes 3.0, Absolute Lymphocytes 0.9 L, Absolute Monocytes 0.3, Absolute Eosinophils 0.3, Absolute Basophils 0 10/10/17 0700: Anion Gap 5, Estimated GFR 52 L, BUN/Creatinine Ratio 13.1, PT 30.4 H, INR 2.76 H, CBC w Diff NO MAN DIFF REQ, RBC 2.89 L, MCV 95.2 H, MCH 31.9 H, MCHC 33.5, RDW 14.4, MPV 7.8, Gran % 66.9, Lymphocytes % 17.7 L, Monocytes % 7.8, Eosinophils % 7.0 H, Basophils % 0.6, Absolute Granulocytes 3.3, Absolute Lymphocytes 0.9 L, Absolute Monocytes 0.4, Absolute Eosinophils 0.3, Absolute Basophils 0 Assessment/Plan Assessment: PATIENT IS 87 YEAR OLD MAN ADMITTED ON 6/4 FOR A PERFERATED DIVERTICULUM PAITENT IS IMPROVING Plan: RESUME COUMADIN CONTINUE HOME MEDS CONVERT ABX TO PO AND CONTINUE ABX FOR A TOTAL OF 10 DAYS CHANGE PAIN MEDS TO PO PREP PATIENT FOR DISCHARGE Zuleyma Del Rosario 10/12/17 0907: Assessment/Plan Plan: agree with above PA-S note f/u INR patient informed of possibility of needing coumadin dose adjusted while taking cipro 10 more days of cipro / flagyl per blood draw on sunday for PT/INR, with dose adjustment of coumadin as per d/c home today
[2017-10-12 08:01] VITALS: BP 140/50
[2017-10-12 08:32] LABS: PT 21.4 SEC (9.4-12.5)
[2017-10-12] MEDS ORDERED: CIPRO500 M1 PO (09:02)
[2017-10-12] MEDS ORDERED: FLAGYL500 MG PO (09:02)
--- NOTE | 2017-10-12 09:13 | Surgical Discharge Summary ---
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 Home Who Do You Live With? Spouse What is Your Primary Language? Welsh ETOH Use: occasional use Review of Systems: see h&p Hospital Course Course Attending Physician: Chai Romero DO Primary Care Physician: Shawn Bautista MD Hospital Course: Presented to the ED on 10/08/17 with abdominal pain, which was secondary to microperforated diverticulitis. Started on iv rocephin and flagyl, with bowel rest. Slow diet advancement as tolerated. Coumadin continued, with monitoring of PT/INR by daily blood draws while inpatient. Nutrition consult obtained to review both low fiber and high fiber diets. Converted to oral cipro and flagyl at the time of discharge, with advisement for blood draw on sunday to check PT/ INR. Complications: None Allergies: Coded Allergies: NO KNOWN ALLERGIES (10/08/17) Disposition Summary Disposition Principal Diagnosis: Microperforated diveriticulitis Additional Diagnosis: none Discharge Disposition: home or self care Discharge Instructions General Discharge Information Code Status: Full Code Patient's Diet: low fiber diet Patient's Activity: as tolerated Follow-Up Instructions/Appts: blood draw on sunday (10/15/17) for PT/INR check and dose adjustment of coumadin accordingly continue oral cipro / flagyl for 10 more days follow up with and within 1-2 weeks Medications at Discharge Discharge Medications: Continue taking these medications: Amlodipine Besylate (Amlodipine Besylate) 5 MG TABLET 1 Tablet ORAL DAILY Warfarin Sodium (Coumadin) 5 MG TABLET 1 Tablet ORAL DAILY Enalapril Maleate (Enalapril Maleate) 5 MG TABLET 20 Milligram ORAL DAILY Qty = 30 Start taking the following new medications: Ciprofloxacin HCl (Cipro) 500 MG TABLET 1 Tablet ORAL TWICE DAILY Qty = 20 No Refills Metronidazole (Flagyl) 500 MG TABLET 1 Tablet ORAL THREE TIMES DAILY Qty = 30 No Refills Copies To: Michele KRISHNAN,Shawn Gonsalez
== END 2017-10-12 10:59 | DRG 392 ==
LOC: ERH 16:00 → ERHI 19:31 → 2NB 19:31 → ENRESERV 20:50 → ENTRNSPT 21:18 → EDTRNSPTSTS 21:30 → EDTRNSPT 21:33 → 2NB 21:39 → CMPTRNSPT 21:57 → ENPENDDIS 10-12 09:10 → 2NB 10-12 10:59
PROVIDERS: Physician Assistant; Physician Assistant Medical; Physician Assistant Surgical
DX: K57.20 Diverticulitis of large intestine with perforation and abscess without bleeding (principal); I10 Essential (primary) hypertension; E78.5 Hyperlipidemia, unspecified; Z79.01 Long term (current) use of anticoagulants; Z90.79 Acquired absence of other genital organ(s); Z90.5 Acquired absence of kidney
CPT/HCPCS: 2NBSP; 36592; 74176; 81001; 82436; 93005; 93010; 96374; 99291; J0131; J0696; J2405; J7042